=== PATIENT | female | born 1995 | race Two or more races ===

== ENCOUNTER 2023-04-08 20:15 | Emergency (ER) | payer SELFPAY ==
[~2023-04-08] VITALS: Ht 167.6 cm; Wt 90.4 kg
[2023-04-08 20:21] VITALS: BP 144/72; PULSE 74; RESP 18; O2SAT 96
== END 2023-04-08 22:13 | disposition left against medical advice (07) ==
LOC: ER 20:15
DX: O26.893 Other specified pregnancy related conditions, third trimester (principal); R51.9 Headache, unspecified; Z3A.35 35 weeks gestation of pregnancy; Z53.21 Procedure and treatment not carried out due to patient leaving prior to being seen by health care provider